=== PATIENT | male | born 1990 | race Caucasian/White ===

== ENCOUNTER 2019-01-07 08:57 | Emergency (ER) | payer OTHER ==
[~2019-01-07] VITALS: Ht 180.3 cm; Wt 95.3 kg
[~2019-01-07 08:57] MED LIST: MOTRIN800 MG PO
== END 2019-01-07 11:41 | disposition home or self-care (01) ==
LOC: ED 08:57
DX: H61.23 Impacted cerumen, bilateral (principal)

== ENCOUNTER 2020-05-15 11:56 | Emergency (ER) | payer OTHER ==
[~2020-05-15] VITALS: Ht 182.8 cm; Wt 99.8 kg
[2020-05-15 13:14] LABS: BASO % 0.5 % (0.0-1.0); EOS # 0.2 10*3/uL (0.0-0.4); EOS % 1.9 % (1.0-4.0); HEMATOCRIT 45.6 % (42.0-52.0); LYMPH # 1.9 10*3/uL (1.3-4.4); LYMPH % 24.1 % (27.0-41.0); MEAN CELL VOLUME 87.7 fl (80.0-94.0); MEAN CORPUSCULAR HGB 28.8 pg (27.0-31.0); MEAN CORPUSCULAR HGB CONC 32.9 g/dl (33.0-37.0); MEAN PLATELET VOLUME 10.3 fl (9.6-12.3); MONO # 0.6 10*3/uL (0.1-1.0); MONO % 7.5 % (3.0-9.0); NEUT # 5.1 10*3/uL (2.3-7.9); NEUT % 65.7 % (47.0-73.0); PLATELET COUNT AUTOMATED 214 10*3/uL (130-400); WHITE BLOOD COUNT 7.8 10*3/uL (4.8-10.8)
[2020-05-15 13:29] LABS: ALBUMIN 3.7 gm/dl (3.1-4.5); ALKALINE PHOSPHATASE 72 U/L (45-117); BUN 16 mg/dl (7-24); CHLORIDE 107 mmol/L (98-107); CREATININE 0.96 mg/dL (0.70-1.30); LIPASE 113 U/L (73-393); POTASSIUM 3.6 mmol/L (3.5-5.1); SGOT/AST 11 IU/L (3-35); SGPT/ALT 25 U/L (12-78); SODIUM 142 mmol/L (136-145); TOTAL PROTEIN 7.2 gm/dL (6.4-8.2)
[2020-05-15 14:50] LABS: BILIRUBIN NEGATIVE; BLOOD NEGATIVE (NEGATIVE); CLARITY CLEAR (CLEAR); COLOR YELLOW (YELLOW); GLUCOSE NEGATIVE; KETONE NEGATIVE; LEUKO ESTERASE NEGATIVE (NEGATIVE); NITRITE NEGATIVE (NEGATIVE)
[2020-05-15 14:57] LABS: BACTERIA TRACE; MUCOUS 2+
== END 2020-05-15 16:01 | disposition home or self-care (01) ==
LOC: ED 11:56
PROVIDERS: Emergency Medicine
DX: R10.32 Left lower quadrant pain (principal)

== ENCOUNTER 2022-11-03 09:10 | Emergency (ER) | payer OTHER ==
[2022-11-03] MEDS ORDERED: CYCLOBENZAPRINE5 M3 PO (10:30)
[2022-11-03] MEDS ORDERED: PREDNISONE50 MG PO (10:30)
== END 2022-11-03 12:23 | disposition left against medical advice (07) ==
LOC: ED 09:10
DX: M54.50 Low back pain, unspecified (principal)

== ENCOUNTER 2024-04-17 10:21 | Emergency (ER) | payer SELFPAY ==
[~2024-04-17] VITALS: Ht 172.7 cm; Wt 99.8 kg
[~2024-04-17 10:21] MED LIST changes: +CYCLOBENZAPRINE5 M3 PO; +PREDNISONE50 MG PO
== END 2024-04-17 13:55 | disposition home or self-care (01) ==
LOC: ED 10:21
DX: S93.401A Sprain of unspecified ligament of right ankle, initial encounter (principal); F90.9 Attention-deficit hyperactivity disorder, unspecified type; X50.1XXA Overexertion from prolonged static or awkward postures, initial encounter; Y93.89 Activity, other specified; Y92.89 Other specified places as the place of occurrence of the external cause; Y99.8 Other external cause status

== ENCOUNTER 2024-11-02 10:18 | Emergency (ER) | payer SELFPAY ==
[~2024-11-02] VITALS: Wt 127.0 kg
[2024-11-02] MEDS ORDERED: PREDNISONE20 M1 PO (13:07)
[2024-11-02] MEDS ORDERED: methylPREDNISolone sod succ 125 MG VIAL IM ONE (13:10)
== END 2024-11-02 13:41 | disposition home or self-care (01) ==
LOC: ED 10:18
DX: M77.8 Other enthesopathies, not elsewhere classified (principal)

== ENCOUNTER 2025-04-16 18:41 | Emergency (ER) | payer SELFPAY ==
[~2025-04-16] VITALS: Ht 172.7 cm; Wt 99.8 kg
[~2025-04-16 18:41] MED LIST changes: +PREDNISONE20 M1 PO
[2025-04-16] MEDS ORDERED: Ondansetron Hydrochloride 4 MG/2 ML VIAL IV ONE (19:35)
[2025-04-16] MEDS ORDERED: SODIUM CHLORIDE 0.9% 1,000 ML IV ONE (19:35)
[2025-04-16 19:48] LABS: BASO # 0.1 10*3/uL (0.0-0.1); BASO % 0.6 % (0.0-1.0); EOS # 0.2 10*3/uL (0.0-0.4); EOS % 2.3 % (1.0-4.0); MEAN CELL VOLUME 84.9 fl (80.0-94.0); MEAN CORPUSCULAR HGB 28.2 pg (27.0-31.0); MEAN PLATELET VOLUME 9.6 fl (9.6-12.3); MONO # 1.2 10*3/uL (0.1-1.0); MONO % 11.4 % (3.0-9.0); NEUT # 7.2 10*3/uL (2.3-7.9); NEUT % 71.4 % (47.0-73.0); NUCLEATED RED BLOOD CELL 0.0 % (0.0-0.0); NUCLEATED RED BLOOD CELL 0.0 10*3/uL (0.0-0.0); PLATELET COUNT AUTOMATED 278 10*3/uL (130-400); RED CELL DISTRI WIDTH 13.0 % (0-14.5)
[2025-04-16 20:10] LABS: BUN 13 mg/dl (9-23); SGPT/ALT 45 U/L (5-49)
[2025-04-16] MEDS ORDERED: Ondansetron4 MG PO (20:56)
[2025-04-16] MEDS ORDERED: POTASSIUM CHLORIDE 20 MEQ TAB PO ONE (21:00)
== END 2025-04-16 21:09 | disposition home or self-care (01) ==
LOC: ED 18:41
PROVIDERS: Nurse Practitioner Family
DX: A08.4 Viral intestinal infection, unspecified (principal); E87.6 Hypokalemia; R11.2 Nausea with vomiting, unspecified; Z20.822 Contact with and (suspected) exposure to COVID-19

== ENCOUNTER 2025-06-12 11:39 | Emergency (ER) | payer SELFPAY ==
[~2025-06-12] VITALS: Ht 175.2 cm; Wt 104.3 kg
[~2025-06-12 11:39] MED LIST changes: +Ondansetron4 MG PO
[2025-06-12] MEDS ORDERED: IBUPROFEN 800 MG TAB PO ONE (12:30)
[2025-06-12] MEDS ORDERED: Sulfamethoxazole/Trimethopri 1 TAB TAB PO ONE (12:35)
[2025-06-12] MEDS ORDERED: SEPTDS PO (13:32)
[2025-06-12] MEDS ORDERED: Motrin,Rufen800 MG PO (13:39)
== END 2025-06-12 13:42 | disposition home or self-care (01) ==
LOC: ED 11:39
DX: M77.8 Other enthesopathies, not elsewhere classified (principal); M25.521 Pain in right elbow; L03.113 Cellulitis of right upper limb

== ENCOUNTER 2025-07-25 10:39 | Emergency (ER) | payer SELFPAY ==
[~2025-07-25] VITALS: Ht 182.8 cm; Wt 108.9 kg
[~2025-07-25 10:39] MED LIST changes: +Motrin,Rufen800 MG PO; +SEPTDS PO
[2025-07-25] MEDS ORDERED: CEPHALEXIN 500 MG CAP PO ONE (12:20)
[2025-07-25] MEDS ORDERED: CEPHALEXIN500 M1 PO (12:24)
[2025-07-25] MEDS ORDERED: DOCUSATE SODIUM 100 MG/10 ML UDC OT ONE (13:10)
== END 2025-07-25 14:26 | disposition home or self-care (01) ==
LOC: ED 10:39
DX: R59.1 Generalized enlarged lymph nodes (principal); H61.21 Impacted cerumen, right ear; F90.9 Attention-deficit hyperactivity disorder, unspecified type

== ENCOUNTER 2025-09-01 11:00 | Emergency (ER) | payer SELFPAY ==
[~2025-09-01] VITALS: Ht 193 cm; Wt 108.9 kg
[~2025-09-01 11:00] MED LIST changes: +CEPHALEXIN500 M1 PO
[2025-09-01] MEDS ORDERED: MELOXICAM15 MG PO (12:16)
== END 2025-09-01 12:33 | disposition home or self-care (01) ==
LOC: ED 11:00
DX: M72.2 Plantar fascial fibromatosis (principal); F90.9 Attention-deficit hyperactivity disorder, unspecified type